=== PATIENT | female | born 2000 | race American Indian/Alaskan Native ===

== ENCOUNTER 2018-03-04 11:31 | Emergency (ER) | payer MEDICAID ==
--- NOTE | 2018-03-04 13:36 | Emergency Department Report ---
Chief Complaint: Pain General Stated Complaint: RT SIDE/BACK/NECK PAIN Time Seen by Provider: 03/04/18 13:27 - HPI History of Present Illness: 17-year-old female presents to the emergency department with the complaint of pain along the entire right side of her body. The patient has been dealing with some chronic pain issues over the past 2 years and has been getting a workup to look into the etiology. Sickle cell has been ruled out. The patient is currently being switched to a new pain specialist and has been referred to a ict security specialist. Primary care physician is Dr. Natty Burns. - ROS Review of Systems: Positive for right sided body pain. Negative for edema, fever or any recent trauma. - Exam Vital Signs: Vital Signs 03/04/18 11:48 Temperature 98.9 F Pulse Rate 94 H Respiratory 18 Rate Blood Pressure 118/57 O2 Sat by Pulse 99 Oximetry Physical Exam: Obese habitus. Awake and alert and in no acute distress. Full range of motion to all extremities. MSE screening note: Focused history and physical exam performed. Due to findings the following was ordered: I have ordered a CBC, BMP and a CK level ED Disposition for MSE Condition: Stable Referrals: KRISTIE BURNS MD [Primary Care Provider] - 3-5 Days
--- NOTE | 2018-03-04 13:44 | Emergency Department Report ---
ED General Adult HPI - General Chief complaint: Pain General Stated complaint: RT SIDE/BACK/NECK PAIN Time Seen by Provider: 03/04/18 13:27 Source: patient Mode of arrival: Ambulatory Limitations: No Limitations - History of Present Illness Initial comments: This is a 17-year-old female presents with right sided pain. Patient states she is seen in a pain specialist and primary care doctor Natty Burns is referring her to a turkish line attendant to have further workup. She has had multiple tests oriented over the past 2 years with no etiology. She reports pain last for several weeks and unrelieved with NSAIDs. Her last visit with [facility] and ruled out sickle cell disease. Patient reports symptoms progressed yesterday and was instructed to follow up in the emergency room. Onset/Timin -: year(s) Location: upper extremity (right), lower extremity (right) Radiation: non-radiation Severity scale (0 -10): 10 Quality: aching, constant Consistency: constant Improves with: none Worsens with: none Associated Symptoms: denies other symptoms Treatments Prior to Arrival: NSAID - Related Data Previous Rx's Medication Instructions Recorded Last Taken Type Acetaminophen/Codeine [Tylenol 1 tab PO Q6H PRN #12 tab 03/04/18 Unknown Rx /Codeine # 3 tab] Allergies Allergy/AdvReac Type Severity Reaction Status Date / Time No Known Allergies Allergy Unverified 03/04/18 11:54 ED Review of Systems ROS: Stated complaint: RT SIDE/BACK/NECK PAIN Other details as noted in HPI Constitutional: denies: chills, fever Respiratory: denies: cough, shortness of breath, wheezing Cardiovascular: denies: chest pain, palpitations Gastrointestinal: denies: abdominal pain, nausea, diarrhea Musculoskeletal: arthralgia (right sided upper and lower extremity pain). denies: back pain, joint swelling Skin: denies: rash, lesions Neurological: denies: headache, weakness, paresthesias Psychiatric: denies: anxiety, depression ED Past Medical Hx - Past Medical History Additional medical history: chronic pain - Social History Smoking Status: Never Smoker Substance Use Type: None - Medications Home Medications: Home Medications Medication Instructions Recorded Confirmed Last Taken Type Acetaminophen/Codeine [Tylenol 1 tab PO Q6H PRN #12 tab 03/04/18 Unknown Rx /Codeine # 3 tab] ED Physical Exam - General Limitations: No Limitations General appearance: alert, in no apparent distress, obese (morbidly obese) - Respiratory Respiratory exam: Present: normal lung sounds bilaterally. Absent: respiratory distress - Cardiovascular Cardiovascular Exam: Present: regular rate, normal rhythm. Absent: systolic murmur, diastolic murmur, rubs, gallop - GI/Abdominal GI/Abdominal exam: Present: soft, normal bowel sounds - Expanded Upper Extremity Exam Right Shoulder Exam: Present: normal inspection, full ROM Upper Arm exam: Present: normal inspection, full ROM Elbow exam: Present: normal inspection, full ROM Forearm Wrist exam: Present: normal inspection, full ROM Hand Wrist exam: Present: normal inspection, full ROM Neuro motor exam: Present: wrist extension intact, thumb opposition intact, thumb IP flexion intact, thumb adduction intact, fingers 2-5 abduction intact Neurosensory exam: Present: radial nerve intact, ulnar nerve intact, median nerve intact Vascular: Present: normal capillary refill, radial pulse (+2) - Expanded Lower Extremity Exam Right Hip exam: Present: normal inspection, full ROM Upper Leg exam: Present: normal inspection, full ROM Knee exam: Present: normal inspection, full ROM Lower Leg exam: Present: normal inspection, full ROM Foot/Toe exam: Present: normal inspection, full ROM Neuro vascular tendon exam: Present: no vascular compromise Gait: Positive: observed and normal - Neurological Exam Neurological exam: Present: alert, oriented X3, normal gait - Psychiatric Psychiatric exam: Present: normal affect, normal mood - Skin Skin exam: Present: warm, dry, intact, normal color. Absent: rash ED Course Vital Signs 03/04/18 11:48 Temperature 98.9 F Pulse Rate 94 H Respiratory 18 Rate Blood Pressure 118/57 O2 Sat by Pulse 99 Oximetry ED Medical Decision Making - Lab Data Result diagrams: 03/04/18 13:38 03/04/18 13:35 Lab Results 03/04/18 03/04/18 Range/Units 13:35 13:38 WBC 6.4 (4.5-11.0) K/mm3 RBC 4.30 (3.65-5.03) M/mm3 Hgb 12.8 (10.1-14.3) gm/dl Hct 38.1 (30.3-42.9) % MCV 89 (79-97) fl MCH 30 (28-32) pg MCHC 34 (30-34) % RDW 14.5 (13.2-15.2) % Plt Count 347 (140-440) K/mm3 Lymph % (Auto) 23.6 (13.4-35.0) % [place] % (Auto) 11.7 H (0.0-7.3) % Eos % (Auto) 2.3 (0.0-4.3) % Baso % (Auto) 0.6 (0.0-1.8) % Lymph # 1.5 (1.2-5.4) K/mm3 [place] # 0.8 (0.0-0.8) K/mm3 Eos # 0.2 (0.0-0.4) K/mm3 Baso # 0.0 (0.0-0.1) K/mm3 Seg Neutrophils % 61.8 (40.0-70.0) % Seg Neutrophils # 4.0 (1.8-7.7) K/mm3 Sodium 138 (137-145) mmol/L Potassium 4.3 (3.6-5.0) mmol/L Chloride 101.0 (98-107) mmol/L Carbon Dioxide 25 (22-30) mmol/L Anion Gap 16 mmol/L BUN 10 (7-17) mg/dL Creatinine 0.6 L (0.7-1.2) mg/dL Estimated GFR > 60 ml/min BUN/Creatinine Ratio 17 % Glucose 87 (65-100) mg/dL Calcium 9.0 (8.4-10.2) mg/dL Total Creatine Kinase 80 (30-135) units/L - Medical Decision Making Patient was examined by me screen by Dr. Vaughn. Vitals are normal and patient is in no acute distress. Obtained CMP, CBC, and total creatinine kinase. All labs are unremarkable. Patient informed of results. Start tylenol #3 for pain. Referral to rheumatology for continued care. Plan discussed with patient to discharge home and treat outpatient. Patient discharged home in stable condition. Follow up with PCP in 2-3 days. Critical care attestation.: If time is entered above; I have spent that time in minutes in the direct care of this critically ill patient, excluding procedure time. ED Disposition Clinical Impression: Chronic pain disorder Disposition: TO HOME OR SELFCARE Is pt being admited?: No Does the pt Need Aspirin: No Condition: Stable Instructions: Chronic Pain (ED) Additional Instructions: Follow-up with rheumatology and primary care provider for continued care. Prescriptions: Acetaminophen/Codeine [Tylenol /Codeine # 3 tab] 1 tab PO Q6H PRN #12 tab PRN Reason: Pain , Severe (7-10) Referrals: KRISTIE BURNS MD [Primary Care Provider] - 3-5 Days Shawn Chau [Other] - 3-5 Days Forms: Work/School Release Form(ED) Time of Disposition: 14:30
[2018-03-04 13:54] LABS: Basophils % (Auto) 0.6 % (0.0-1.8); Eosinophils # (Auto) 0.2 K/mm3 (0.0-0.4); Eosinophils % (Auto) 2.3 % (0.0-4.3); Hematocrit 38.1 % (30.3-42.9); Hemoglobin 12.8 gm/dl (10.1-14.3); Lymphocytes # (Auto) 1.5 K/mm3 (1.2-5.4); Lymphocytes % (Auto) 23.6 % (13.4-35.0); Mean Corpuscular HGB Conc 34 % (30-34); Mean Corpuscular Hemoglobin 30 pg (28-32); Mean Corpuscular Volume 89 fl (79-97); Monocytes # (Auto) 0.8 K/mm3 (0.0-0.8); Monocytes % (Auto) 11.7 % (0.0-7.3); Platelet Count 347 K/mm3 (140-440); Red Cell Distribution Width 14.5 % (13.2-15.2)
[2018-03-04 14:13] LABS: BUN/Creatinine Ratio 17; Blood Urea Nitrogen 10 mg/dL (7-17); Hemolysis Index 9
[2018-03-04] MEDS ORDERED: NORCO 5/325 ONE (14:52)
[2018-03-04] MEDS ORDERED: NORCO 5/325 PO ONE (14:52)
[2018-03-04 14:55] VITALS: BP 120/66
== END 2018-03-04 14:54 | disposition home or self-care (01) ==
LOC: ED 11:31
DX: G89.4 Chronic pain syndrome (principal); M54.2 Cervicalgia; M54.5 Low back pain; E66.01 Morbid (severe) obesity due to excess calories; Z68.42 Body mass index [BMI] 45.0-49.9, adult
CPT/HCPCS: 36415; 80048; 82550; 85025; 99283

== ENCOUNTER 2020-08-13 13:40 | Emergency (ER) | payer OTHER ==
[2020-08-13 14:02] VITALS: BP 117/77
--- NOTE | 2020-08-13 17:12 | Event Note ---
ED Screening Note Date of service: 08/13/20 Time: 17:11 ED Screening Note: 19-year-old female patient presents to the emergency department with complaints of abdominal pain and nausea for 3 weeks. Pain is primarily localized to the epigastric and periumbilical area. No history of abdominal surgeries. Last menstrual cycle was 2 weeks ago. General: Awake, appropriately interactive, no acute distress. Neck: Supple. Full range of motion intact. Cardiovascular: Normal peripheral perfusion. Pulmonary: No respiratory distress. Patient is speaking normally without use of accessory muscles. Abdomen: Epigastric and periumbilical tenderness. Skin: No apparent rashes or lesions. Neurological: No facial asymmetry. Speech is clear. Follows commands. Patient is alert and oriented. Musculoskeletal: Moves all four extremities spontaneously with normal range of motion. Psych: Cooperative. Appropriate mood and affect. I have greeted and performed a focused rapid initial assessment of this patient. A comprehensive ED assessment and evaluation of the patient, analysis of all test results, and completion of the medical decision-making process will be conducted by additional ED providers. This initial assessment/diagnostic orders/clinical plan/treatment(s) is/are subject to change based on patients health status, clinical progression and re-assessment. Further treatment and workup at subsequent clinical provider's discretion. Patient/guardian urged not to elope from the ED as their condition may be serious if not clinically assessed and managed.
[2020-08-13 17:42] LABS: Basophils % (Auto) 0.6 % (0.0-1.8); Eosinophils # (Auto) 0.1 K/mm3 (0.0-0.4); Eosinophils % (Auto) 0.9 % (0.0-4.3); Hematocrit 39.4 % (30.3-42.9); Lymphocytes % (Auto) 26.1 % (13.4-35.0); Mean Corpuscular HGB Conc 33 % (30-34); Mean Corpuscular Volume 95 fl (79-97); Monocytes # (Auto) 0.6 K/mm3 (0.0-0.8); Monocytes % (Auto) 7.5 % (0.0-7.3); Platelet Count 367 K/mm3 (140-440); Red Blood Count 4.14 M/mm3 (3.65-5.03); Red Cell Distribution Width 14.3 % (13.2-15.2)
[2020-08-13 18:28] LABS: Alanine Aminotransferase 11 units/L (7-56); Albumin 4.1 g/dL (3.9-5); BUN/Creatinine Ratio 8; Blood Urea Nitrogen 5 mg/dL (7-17); Calcium 9.2 mg/dL (8.4-10.2); Hemolysis Index 15
[2020-08-13 19:33] LABS: Bilirubin,Urine NEG (Negative); Blood,Urine NEG (Negative); Color,Urine Amber (Yellow); Mucus,Urine 3+ /HPF
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
[2020-08-13] MEDS ORDERED: traMADol 50 MG TAB PO ONE (22:58)
== END 2020-08-13 23:05 | disposition home or self-care (01) ==
LOC: ED 13:40
DX: M79.601 Pain in right arm (principal); M25.561 Pain in right knee; R10.9 Unspecified abdominal pain; J45.909 Unspecified asthma, uncomplicated; G89.29 Other chronic pain; Z98.890 Other specified postprocedural states; Z79.899 Other long term (current) drug therapy
CPT/HCPCS: 36415; 80053; 81001; 83690; 84703; 85025; 99284